=== PATIENT | female | born 1950 | race Caucasian/White ===

== ENCOUNTER → 2025-06-21 | Outpatient (CLI) | payer MEDICARE, OTHER ==
[2025-06-21 11:57] LABS: BASOPHIL # 0.0 10^3/uL (0.0-0.1); BASOPHIL % 0.4 % (0.1-1.2); EOSINOPHIL # 0.2 10^3/uL (0.0-0.2); EOSINOPHIL % 2.9 % (0.0-5.0); HEMATOCRIT(ML) 37.7 % (36.0-46.0); IG % 0.10 % (0.00-0.50); LYMPHOCYTES # 1.27 10^3/uL1 (1.0-4.8); LYMPHOCYTES % 15.5 % (24.0-44.0); MEAN CORP HGB 29.5 pg (26-34); MEAN CORP HGB CONCENTRATION 31.6 g/dL (33-36.5); MEAN CORP VOLUME 93.3 fL (78-100); MONOCYTES # 0.4 10^3/uL (0.3-0.8); MONOCYTES % 4.8 % (5.0-12.0); NEUTROPHIL # 6.3 10^3/uL (1.8-7.7); NEUTROPHILS % 76.3 % (41.0-85.0); RED BLOOD CELL 4.04 10^6/uL (4.00-5.20); RED CELL DISTRIBUTION WIDTH 13.1 % (11.5-14.5); WHITE BLOOD CELL 8.2 10^3/uL (4.5-11.0)
[2025-06-21 12:22] LABS: ALANINE AMINOTRANSFERASE(ML) 21.0 U/L (12-78); ALBUMIN(ML) 4.1 g/dL (3.4-5.0); CREATININE SERUM 1.22 mg/dL (0.59-1.40); EST GFR, NON-AA 43.1 (>/=60); LDL/HDL RATIO 1.6
== END | disposition home or self-care (01) ==
LOC: LAB 11:21
DX: I10 Essential (primary) hypertension (principal); Z13.1 Encounter for screening for diabetes mellitus; Z13.29 Encounter for screening for other suspected endocrine disorder; K21.9 Gastro-esophageal reflux disease without esophagitis; E78.5 Hyperlipidemia, unspecified
CPT/HCPCS: 36415; 80053; 80061; 83036; 84439; 84443; 85025; 86677